=== PATIENT | male | born 1935 | race Caucasian/White ===

== ENCOUNTER 2017-10-23 14:41 | Inpatient (IN) | payer MEDICARE, OTHER ==
[~2017-10-23] VITALS: Ht 182.9 cm; Wt 91.5 kg
[2017-10-23] MEDS ORDERED: ONDANSETRON ODT 4 MG ONE (15:57)
[2017-10-23] MEDS ORDERED: MORPHINE SULFATE 4 MG/ML, 1ML ONE (15:57)
[2017-10-23 16:26] LABS: BASOPHILS # (AUTO) 0.04 x10^3/uL (0-0.1); BASOPHILS % (AUTO) 0 % (0-1); EOSINOPHILS # (AUTO) 0.04 x10^3/uL (0-0.4); EOSINOPHILS % (AUTO) 0 % (1-7); LYMPHOCYTES # (AUTO) 1.21 x10^3/uL (1-3.4); LYMPHOCYTES % (AUTO) 10 % (22-44); MD NO; MEAN CORPUSCULAR HEMOGLOBIN 32.2 pg (27.5-34.5); MEAN CORPUSCULAR HGB CONC 33.5 g/dL (33.2-36.2); MEAN PLATELET VOLUME 8.1 fL (7.4-10.4); MONOCYTES # (AUTO) 0.51 x10^3/uL (0.2-0.8); MONOCYTES % (AUTO) 4 % (2-9); NEUTROPHILS # (AUTO) 10.38 x10^3/uL (1.8-6.8); NEUTROPHILS % (AUTO) 85 % (42-75); PLATELET COUNT 154 x10^3/uL (130-400); RED BLOOD COUNT 3.99 x10^6/uL (4.38-5.82); RED CELL DISTRIBUTION WIDTH 13.3 % (9.4-14.8)
[2017-10-23] MEDS ORDERED: METO25TA2 PO (16:26)
[2017-10-23] MEDS ORDERED: PRAV20TA2 PO (16:26)
[2017-10-23] MEDS ORDERED: ASPI-496 PO (16:26)
[2017-10-23] MEDS ORDERED: ENAL20TA PO (16:26)
[2017-10-23 16:37] LABS: ALBUMIN 3.8 g/dL (3.4-5.0); ANION GAP 9 mmol/L (5-15); CALCIUM 8.3 mg/dL (8.5-10.1); CHLORIDE 107 mmol/L (98-107); CREATININE 1.42 mg/dL (0.7-1.3)
[2017-10-23] MEDS ORDERED: MORPHINE SULFATE 4 MG/ML, 1ML IVPush PRN (17:00)
[2017-10-23] MEDS ORDERED: ONDANSETRON ODT 4 MG PO ONE (17:00)
[2017-10-23 17:26] LABS: INTERNATIONAL NORMALIZED RATIO 1.02 (0.93-1.1); PROTHROMBIN TIME 10.6 Seconds (9.6-11.5)
[2017-10-23] MEDS ORDERED: L.E.T SOLUTION TP ONE (17:29)
[2017-10-23] MEDS ORDERED: DOCUSATE 100 MG CAPSULE PO PRN (17:30)
[2017-10-23] MEDS ORDERED: ENALAPRILAT 1.25 MG/ML, 2ML IVPush PRN (17:30)
[2017-10-23] MEDS ORDERED: ONDANSETRON ODT 4 MG PO PRN (17:30)
[2017-10-23] MEDS ORDERED: ONDANSETRON 2MG/ML, 2ML IVPush PRN (17:30)
[2017-10-23] MEDS ORDERED: METOCLOPRAMIDE 5 MG/ML, 2ML IVPush PRN (17:30)
[2017-10-23] MEDS ORDERED: hydrALAzine 20 MG/ML, 1ML IVPush PRN (17:30)
[2017-10-23] MEDS ORDERED: LABETALOL 5MG/ML, 20ML IVPush PRN (17:30)
[2017-10-23] MEDS: morphine SULFATE 10 MG/ML, 1ML IVPush PRN ×2 (22:45→23:09)
[2017-10-23] MEDS: LACTATED RINGERS 1,000 ML IV SCH (23:12)
[2017-10-24 02:30] VITALS: BP 129/85
[2017-10-24] MEDS: morphine SULFATE 10 MG/ML, 1ML IVPush PRN ×3 (03:20→11:51)
[2017-10-24 03:38] LABS: MICROSCOPIC NOT IND
[2017-10-24 03:57] LABS: CULTURE INDICATED? NO
[2017-10-24 05:13] LABS: BASOPHILS # (AUTO) 0.05 x10^3/uL (0-0.1); BASOPHILS % (AUTO) 0 % (0-1); EOSINOPHILS # (AUTO) 0.05 x10^3/uL (0-0.4); EOSINOPHILS % (AUTO) 0 % (1-7); LYMPHOCYTES # (AUTO) 1.59 x10^3/uL (1-3.4); LYMPHOCYTES % (AUTO) 15 % (22-44); MD NO; MEAN CORPUSCULAR HEMOGLOBIN 32.1 pg (27.5-34.5); MEAN CORPUSCULAR HGB CONC 33.4 g/dL (33.2-36.2); MEAN PLATELET VOLUME 8.4 fL (7.4-10.4); MONOCYTES # (AUTO) 1.24 x10^3/uL (0.2-0.8); MONOCYTES % (AUTO) 11 % (2-9); NEUTROPHILS # (AUTO) 7.92 x10^3/uL (1.8-6.8); NEUTROPHILS % (AUTO) 73 % (42-75); PLATELET COUNT 142 x10^3/uL (130-400); RED BLOOD COUNT 3.78 x10^6/uL (4.38-5.82); RED CELL DISTRIBUTION WIDTH 13.2 % (9.4-14.8)
[2017-10-24 05:30] LABS: CHLORIDE 106 mmol/L (98-107)
[2017-10-24 05:44] LABS: ALANINE AMINOTRANSFERASE 20 U/L (12-78); ALBUMIN 3.6 g/dL (3.4-5.0); ALKALINE PHOSPHATASE 80 U/L (45-117); ANION GAP 10 mmol/L (5-15); BILIRUBIN,TOTAL 0.7 mg/dL (0.2-1.0); CALCIUM 8.1 mg/dL (8.5-10.1); CREATININE 1.34 mg/dL (0.7-1.3)
[2017-10-24 06:55] VITALS: BP 138/90
[2017-10-24] MEDS: ENOXAPARIN 40 MG/0.4 ML SQ SCH (08:18)
[2017-10-24] MEDS: METOPROLOL TARTRATE 25 MG TABLET PO SCH ×3 (11:00→21:25)
[2017-10-24] MEDS: ENALAPRIL 20MG TABLET PO SCH ×2 (11:00→12:48)
[2017-10-24 11:43] VITALS: BP 129/8
[2017-10-24 12:24] LABS: TROPONIN I < 0.015 ng/mL (0.000-0.045)
[2017-10-24 12:39] VITALS: BP 151/105
[2017-10-24] MEDS: LACTATED RINGERS 1,000 ML IV SCH (12:50)
[2017-10-24 14:06] VITALS: BP 128/88
[2017-10-24] MEDS ORDERED: DIGOXIN 0.25 MG/ML, 2ML IVPush ONE (14:30)
[2017-10-24] MEDS ORDERED: DILTIAZEM 5 MG/ML, 5ML IVPush ONE (14:30)
[2017-10-24] MEDS ORDERED: MAGNESIUM SULFATE PMX 2GM/50ML 50 ML IV ONE (14:30)
[2017-10-24] MEDS ORDERED: METOPROLOL TARTRATE 25 MG TABLET PO SCH (17:00)
[2017-10-24 19:05] VITALS: BP 165/98
[2017-10-24] MEDS: PRAVASTATIN 20 MG TABLET PO SCH (21:24)
[2017-10-25 00:46] VITALS: BP 148/94
[2017-10-25] MEDS: METOPROLOL TARTRATE 25 MG TABLET PO SCH ×7 (01:00→21:39)
[2017-10-25] MEDS: LACTATED RINGERS 1,000 ML IV SCH (03:06)
[2017-10-25 07:37] LABS: MEAN CORPUSCULAR HEMOGLOBIN 31.6 pg (27.5-34.5); MEAN CORPUSCULAR HGB CONC 32.8 g/dL (33.2-36.2); MEAN CORPUSCULAR VOLUME 96.4 fL (81-97); MEAN PLATELET VOLUME 8.7 fL (7.4-10.4); PLATELET COUNT 117 x10^3/uL (130-400); RED BLOOD COUNT 3.78 x10^6/uL (4.38-5.82); RED CELL DISTRIBUTION WIDTH 13.2 % (9.4-14.8)
[2017-10-25 07:46] LABS: ALBUMIN 3.1 g/dL (3.4-5.0); ANION GAP 8 mmol/L (5-15); CALCIUM 7.8 mg/dL (8.5-10.1); CHLORIDE 104 mmol/L (98-107)
[2017-10-25 07:49] LABS: ALANINE AMINOTRANSFERASE 17 U/L (12-78); ALKALINE PHOSPHATASE 73 U/L (45-117); BILIRUBIN,TOTAL 0.9 mg/dL (0.2-1.0); CREATININE 1.26 mg/dL (0.7-1.3); TOTAL PROTEIN 6.7 g/dL (6.4-8.2)
[2017-10-25 08:17] LABS: BASOPHILS # (AUTO) 0.09 x10^3/uL (0-0.1); BASOPHILS % (AUTO) 1 % (0-1); EOSINOPHILS # (AUTO) 0.01 x10^3/uL (0-0.4); EOSINOPHILS % (AUTO) 0 % (1-7); LYMPHOCYTES # (AUTO) 1.24 x10^3/uL (1-3.4); LYMPHOCYTES % (AUTO) 8 % (22-44); MD SCAN; MONOCYTES # (AUTO) 1.52 x10^3/uL (0.2-0.8); MONOCYTES % (AUTO) 10 % (2-9); NEUTROPHILS # (AUTO) 13.09 x10^3/uL (1.8-6.8); NEUTROPHILS % (AUTO) 82 % (42-75)
[2017-10-25] MEDS: ENALAPRIL 20MG TABLET PO SCH (09:00)
[2017-10-25] MEDS: TAMSULOSIN 0.4 MG CAP.ER.24H PO SCH (09:00)
[2017-10-25] MEDS: ENOXAPARIN 40 MG/0.4 ML SQ SCH (09:46)
[2017-10-25] MEDS: HALOPERIDOL 5 MG/ML IV PRN ×2 (09:58→18:20)
[2017-10-25] MEDS: PRAVASTATIN 20 MG TABLET PO SCH (21:39)
[2017-10-25 22:01] VITALS: BP 116/79
[2017-10-26] MEDS: METOPROLOL TARTRATE 25 MG TABLET PO SCH ×6 (01:00→13:42)
[2017-10-26] MEDS: HALOPERIDOL 5 MG/ML IV PRN (03:38)
[2017-10-26 06:08] LABS: BASOPHILS # (AUTO) 0.04 x10^3/uL (0-0.1); BASOPHILS % (AUTO) 0 % (0-1); EOSINOPHILS % (AUTO) 0 % (1-7); LYMPHOCYTES # (AUTO) 1.18 x10^3/uL (1-3.4); LYMPHOCYTES % (AUTO) 9 % (22-44); MD NO; MEAN CORPUSCULAR HEMOGLOBIN 32.6 pg (27.5-34.5); MEAN CORPUSCULAR HGB CONC 33.8 g/dL (33.2-36.2); MEAN CORPUSCULAR VOLUME 96.4 fL (81-97); MEAN PLATELET VOLUME 8.7 fL (7.4-10.4); MONOCYTES # (AUTO) 1.24 x10^3/uL (0.2-0.8); MONOCYTES % (AUTO) 10 % (2-9); NEUTROPHILS # (AUTO) 10.64 x10^3/uL (1.8-6.8); NEUTROPHILS % (AUTO) 81 % (42-75); PLATELET COUNT 118 x10^3/uL (130-400); RED BLOOD COUNT 3.66 x10^6/uL (4.38-5.82); RED CELL DISTRIBUTION WIDTH 13.3 % (9.4-14.8)
[2017-10-26 06:15] LABS: ANION GAP 9 mmol/L (5-15); CALCIUM 7.9 mg/dL (8.5-10.1); CHLORIDE 104 mmol/L (98-107)
[2017-10-26 07:16] VITALS: BP 136/91
[2017-10-26] MEDS: ENOXAPARIN 40 MG/0.4 ML SQ SCH (09:51)
[2017-10-26] MEDS: TAMSULOSIN 0.4 MG CAP.ER.24H PO SCH (09:52)
[2017-10-26] MEDS: ENALAPRIL 20MG TABLET PO SCH (09:53)
[2017-10-26 13:20] VITALS: BP 123/78
[2017-10-26] MEDS: DILTIAZEM 60 MG TABLET PO SCH ×3 (14:30→20:40)
[2017-10-26] MEDS: ACETAMINOPHEN 325 MG TABLET PO PRN (18:05)
[2017-10-26 19:28] VITALS: BP 99/58
[2017-10-26] MEDS: PRAVASTATIN 20 MG TABLET PO SCH (20:08)
[2017-10-26 20:11] VITALS: BP 83/53
[2017-10-26 20:18] VITALS: BP 97/59
[2017-10-26] MEDS: SODIUM CHLORIDE 0.9% 1,000 ML IV SCH (20:44)
[2017-10-27 01:50] VITALS: BP 119/75
[2017-10-27 09:15] VITALS: BP 124/65
[2017-10-27] MEDS: DILTIAZEM 60 MG TABLET PO SCH ×3 (09:21→18:12)
[2017-10-27] MEDS: TAMSULOSIN 0.4 MG CAP.ER.24H PO SCH ×2 (09:21→10:26)
[2017-10-27] MEDS: ENOXAPARIN 40 MG/0.4 ML SQ SCH ×2 (09:22→10:27)
[2017-10-27] MEDS: ENALAPRIL 20MG TABLET PO SCH ×2 (09:22→10:27)
[2017-10-27] MEDS: SODIUM CHLORIDE 0.9% 1,000 ML IV SCH ×2 (09:31→23:48)
[2017-10-27] MEDS: ACETAMINOPHEN 325 MG TABLET PO PRN (11:01)
[2017-10-27] MEDS ORDERED: LIDODERM 5% PATCH TD ONE (11:30)
[2017-10-27 14:00] VITALS: BP 157/81
[2017-10-27] MEDS: PRAVASTATIN 20 MG TABLET PO SCH (20:30)
[2017-10-27 20:46] VITALS: BP 128/85
[2017-10-27] MEDS ORDERED: DILTIAZEM 60 MG TABLET PO ONE (23:30)
[2017-10-28 02:35] VITALS: BP 153/93
[2017-10-28] MEDS: HALOPERIDOL 5 MG/ML IV PRN (04:00)
[2017-10-28 05:13] LABS: CHLORIDE 101 mmol/L (98-107)
[2017-10-28 05:18] LABS: BASOPHILS # (AUTO) 0.02 x10^3/uL (0-0.1); BASOPHILS % (AUTO) 0 % (0-1); EOSINOPHILS # (AUTO) 0.02 x10^3/uL (0-0.4); EOSINOPHILS % (AUTO) 0 % (1-7); LYMPHOCYTES # (AUTO) 0.78 x10^3/uL (1-3.4); LYMPHOCYTES % (AUTO) 9 % (22-44); MD NO; MEAN CORPUSCULAR HEMOGLOBIN 31.9 pg (27.5-34.5); MEAN CORPUSCULAR HGB CONC 33.7 g/dL (33.2-36.2); MEAN CORPUSCULAR VOLUME 94.6 fL (81-97); MEAN PLATELET VOLUME 7.8 fL (7.4-10.4); MONOCYTES % (AUTO) 9 % (2-9); NEUTROPHILS # (AUTO) 6.95 x10^3/uL (1.8-6.8); NEUTROPHILS % (AUTO) 81 % (42-75); PLATELET COUNT 137 x10^3/uL (130-400); RED BLOOD COUNT 3.39 x10^6/uL (4.38-5.82); RED CELL DISTRIBUTION WIDTH 13.2 % (9.4-14.8)
[2017-10-28 05:22] LABS: ALANINE AMINOTRANSFERASE 35 U/L (12-78); ALBUMIN 2.4 g/dL (3.4-5.0); ALKALINE PHOSPHATASE 89 U/L (45-117); ANION GAP 12 mmol/L (5-15); BILIRUBIN,TOTAL 0.8 mg/dL (0.2-1.0); CALCIUM 8.1 mg/dL (8.5-10.1); CREATININE 1.13 mg/dL (0.7-1.3); TOTAL PROTEIN 6.4 g/dL (6.4-8.2)
[2017-10-28] MEDS ORDERED: ASPIRIN 81 MG TABLET EC PO SCH (06:00)
[2017-10-28 08:35] VITALS: BP 132/70
[2017-10-28] MEDS ORDERED: METOPROLOL SUCCINATE 25 MG TAB.ER.24H PO SCH (09:00)
[2017-10-28] MEDS ORDERED: SENNA/DOCUSATE TABLET ONE (09:42)
[2017-10-28] MEDS: TAMSULOSIN 0.4 MG CAP.ER.24H PO SCH (09:59)
[2017-10-28] MEDS: ENALAPRIL 20MG TABLET PO SCH (10:00)
[2017-10-28] MEDS ORDERED: SENNA/DOCUSATE TABLET PO PRN (10:00)
[2017-10-28] MEDS: ENOXAPARIN 40 MG/0.4 ML SQ SCH (10:00)
[2017-10-28] MEDS ORDERED: MAGNESIUM HYDROXIDE 8%, 30ML UDC PO PRN (10:00)
[2017-10-28] MEDS ORDERED: HALOPERIDOL 5 MG/ML IM PRN (11:00)
[2017-10-28] MEDS ORDERED: POLYETHYLENE GLYCOL 17 GM PACKET PO ONE (11:00)
[2017-10-28] MEDS: DABIGATRAN 150 MG CAPSULE PO SCH ×2 (12:42→20:01)
[2017-10-28] MEDS: SODIUM CHLORIDE 0.9% 1,000 ML IV SCH (13:00)
[2017-10-28 15:04] VITALS: BP 108/74
[2017-10-28] MEDS: LIDODERM 5% PATCH TD SCH (15:38)
[2017-10-28] MEDS: VALPROIC ACID 250 MG CAPSULE PO SCH ×2 (15:38→20:01)
[2017-10-28 18:25] VITALS: BP 153/86
[2017-10-28] MEDS: PRAVASTATIN 20 MG TABLET PO SCH (20:01)
[2017-10-28] MEDS: DOCUSATE 100 MG CAPSULE PO SCH (20:01)
[2017-10-28] MEDS ORDERED: SODIUM CHLORIDE 0.9% 1,000 ML IV SCH (21:00)
[2017-10-29] MEDS ORDERED: DILTIAZEM MC SCH (07:00)
[2017-10-29] MEDS ORDERED: DILTIAZEM 30 MG TABLET PO SCH ×2 (07:00→11:00)
[2017-10-29] MEDS ORDERED: METOPROLOL SUCCINATE 25 MG TAB.ER.24H PO SCH ×2 (09:00)
[2017-10-29] MEDS ORDERED: DILTIAZEM 30 MG TABLET PO PRN ×2 (09:00→11:30)
[2017-10-29 09:07] VITALS: BP 111/77
[2017-10-29] MEDS: TAMSULOSIN 0.4 MG CAP.ER.24H PO SCH (10:27)
[2017-10-29] MEDS: VALPROIC ACID 250 MG CAPSULE PO SCH ×2 (10:27→14:51)
[2017-10-29] MEDS: DOCUSATE 100 MG CAPSULE PO SCH (10:27)
[2017-10-29] MEDS: ENALAPRIL 20MG TABLET PO SCH (10:27)
[2017-10-29] MEDS: DABIGATRAN 150 MG CAPSULE PO SCH (10:27)
[2017-10-29] MEDS: SODIUM CHLORIDE 0.9% 1,000 ML IV SCH (10:29)
[2017-10-29] MEDS ORDERED: VALP250C PO (12:15)
[2017-10-29] MEDS ORDERED: DABI150C PO (12:15)
[2017-10-29] MEDS ORDERED: DOCU-131 PO (12:15)
[2017-10-29] MEDS ORDERED: Lidoderm 5% Patch TD (12:15)
[2017-10-29] MEDS ORDERED: TRAM50TA2 PO (12:15)
[2017-10-29] MEDS ORDERED: TAMS-11 PO (12:15)
[2017-10-29] MEDS ORDERED: ACET325T14 PO (12:15)
[2017-10-29] MEDS ORDERED: DILT30TA27 PO (12:15)
[2017-10-29 12:38] VITALS: BP 127/82
[2017-10-29] MEDS: LIDODERM 5% PATCH TD SCH (14:49)
== END 2017-10-29 15:13 | DRG 533 ==
LOC: ED 16:32 → EDIP 17:26 → 4NOR 18:26 → 5SO 10-24 11:38 → 4EST 10-25 12:24
PROVIDERS: ADMIT Internal Medicine Pulmonary Disease; ATTEND Internal Medicine Pulmonary Disease
DX: S72.332A Displaced oblique fracture of shaft of left femur, initial encounter for closed fracture (principal); N17.0 Acute kidney failure with tubular necrosis; I48.91 Unspecified atrial fibrillation; D68.69 Other thrombophilia; E83.51 Hypocalcemia; I48.92 Unspecified atrial flutter; M97.02XA Periprosthetic fracture around internal prosthetic left hip joint, initial encounter; N17.9 Acute kidney failure, unspecified; Z66 Do not resuscitate; D72.829 Elevated white blood cell count, unspecified; E78.5 Hyperlipidemia, unspecified; I10 Essential (primary) hypertension; K59.00 Constipation, unspecified; Z96.643 Presence of artificial hip joint, bilateral; Z96.653 Presence of artificial knee joint, bilateral; R73.9 Hyperglycemia, unspecified; R41.0 Disorientation, unspecified; Z53.20 Procedure and treatment not carried out because of patient's decision for unspecified reasons; W01.0XXA Fall on same level from slipping, tripping and stumbling without subsequent striking against object, initial encounter; Y93.01 Activity, walking, marching and hiking; Y92.89 Other specified places as the place of occurrence of the external cause; Y99.8 Other external cause status; Z79.82 Long term (current) use of aspirin; Z87.891 Personal history of nicotine dependence; Z91.81 History of falling; Z95.2 Presence of prosthetic heart valve
CPT/HCPCS: 36415; 71045; 80048; 80053; 81003; 82040; 83735; 84100; 84484; 85025; 85610; 85730; 87040; 93005; 96374; C8929; J1650; Q0162; J1160; J1630; J2270; J3475; J7030; J7120

== ENCOUNTER 2018-01-05 11:57 | Emergency (ER) | payer MEDICARE, OTHER ==
[~2018-01-05] VITALS: Ht 182.9 cm; Wt 86.0 kg
[~2018-01-05 11:57] MED LIST: ACET325T14 PO; ASPI-496 PO; DABI150C PO; DILT30TA27 PO; DOCU-131 PO; ENAL20TA PO; Lidoderm 5% Patch TD; METO25TA2 PO; PRAV20TA2 PO; TAMS-11 PO; TRAM50TA2 PO; VALP250C PO
[2018-01-05 14:06] LABS: ALBUMIN 4.1 g/dL (3.4-5.0); ANION GAP 7 mmol/L (5-15); CALCIUM 8.9 mg/dL (8.5-10.1); CHLORIDE 101 mmol/L (98-107); CREATININE 1.37 mg/dL (0.7-1.3)
[2018-01-05 14:11] LABS: ALANINE AMINOTRANSFERASE 21 U/L (12-78); ALKALINE PHOSPHATASE 109 U/L (45-117); BILIRUBIN,TOTAL 0.4 mg/dL (0.2-1.0); TOTAL PROTEIN 8.2 g/dL (6.4-8.2)
[2018-01-05 14:18] LABS: MEAN CORPUSCULAR HEMOGLOBIN 31.3 pg (27.5-34.5); MEAN CORPUSCULAR HGB CONC 33.1 g/dL (33.2-36.2); MEAN CORPUSCULAR VOLUME 94.5 fL (81-97); MEAN PLATELET VOLUME 7.8 fL (7.4-10.4); PLATELET COUNT 173 x10^3/uL (130-400); RED BLOOD COUNT 4.17 x10^6/uL (4.38-5.82); RED CELL DISTRIBUTION WIDTH 15.2 % (9.4-14.8)
[2018-01-05 14:21] LABS: MD YES
[2018-01-05 14:27] LABS: MICROSCOPIC INDICATED
[2018-01-05 14:29] LABS: BAND#(MANUAL) 0.05 x10^3/uL; BANDS%(MANUAL) 1 % (0-7); BASOS% (MANUAL) 2 % (0-1); LYMPH#(MANUAL) 0.65 x10^3/uL (1-3.4); LYMPHS% (MANUAL) 13 % (22-44); METAMYELOCYTES# (MANUAL) 0.15 x10^3/uL (0-0); METAMYELOCYTES% (MANUAL) 3 % (0-1); MONOS% (MANUAL) 16 % (2-9); MYELOCYTES# (MANUAL) 0.05 x10^3/uL (0-0); MYELOCYTES% (MANUAL) 1 % (0-0); REACTIVE LYMPHS % (MANUAL) 2 % (0-0); SEGS% (MANUAL) 62 % (42-75)
[2018-01-05 14:31] LABS: <PLATELET ESTIMATE> ADEQUATE; <PLT MORPHOLOGY> NORMAL PLT MORPH; ANISOCYTOSIS 1+; HYPOCHROMIA 1+; POLYCHROMASIA 1+
[2018-01-05] MEDS ORDERED: DABI75CA3 PO (14:32)
[2018-01-05] MEDS ORDERED: CALC-451 PO (14:33)
[2018-01-05 14:34] VITALS: BP 125/76
[2018-01-05] MEDS ORDERED: CALCIUM (14:34)
[2018-01-05 14:35] LABS: CULTURE INDICATED? NO
== END 2018-01-05 15:49 | disposition home or self-care (01) ==
LOC: ED 15:40
DX: E86.0 Dehydration (principal); I48.91 Unspecified atrial fibrillation; I50.9 Heart failure, unspecified; N28.9 Disorder of kidney and ureter, unspecified; Z79.01 Long term (current) use of anticoagulants; Z79.82 Long term (current) use of aspirin
CPT/HCPCS: 36415; 71045; 80053; 81001; 85025; 93005; 99285

== ENCOUNTER 2018-10-30 12:41 | Day surgery (SDC) | payer MEDICARE, OTHER ==
[~2018-10-30] VITALS: Ht 182.9 cm; Wt 82.1 kg
[~2018-10-30 12:41] MED LIST changes: +APIX5TAB PO; +ATOR40TA78 PO; +CALC-451 PO; +CALCIUM; +DABI75CA3 PO; +METO50TA82 PO; +MULT1TAB9 PO
[2018-10-30 13:12] VITALS: BP 110/75
[2018-10-30] MEDS ORDERED: LACTATED RINGERS 1,000 ML IV SCH (13:22)
[2018-10-30] MEDS ORDERED: BUPIVACAINE/EPI 0.5% 1:200K ONE (13:28)
[2018-10-30] MEDS ORDERED: MIDAZOLAM 1 MG/ML, 5ML ONE (14:31)
[2018-10-30] MEDS ORDERED: FENTANYL PF 100 MCG/2ML ONE (14:31)
== END 2018-10-30 16:45 | disposition home or self-care (01) ==
LOC: OUT 12:41 → EDSTATUS 14:30 → OUT 16:45
PROVIDERS: ATTEND Surgery
DX: C19 Malignant neoplasm of rectosigmoid junction (principal); I10 Essential (primary) hypertension; Z79.01 Long term (current) use of anticoagulants; Z79.899 Other long term (current) drug therapy; Z98.890 Other specified postprocedural states; Z95.2 Presence of prosthetic heart valve; Z87.891 Personal history of nicotine dependence
CPT/HCPCS: 45331; 88305; 93005; J2250; J3010; 99152; 99153

== ENCOUNTER → 2018-11-09 | Outpatient (CLI) | payer MEDICARE, OTHER ==
[~2018-11-09] MED LIST changes: +OMNIPAQUE 350 MG/ML, 100ML BOTTLE ONE
== END | disposition home or self-care (01) ==
LOC: CFH 08:07
PROVIDERS: ATTEND Surgery
DX: K57.30 Diverticulosis of large intestine without perforation or abscess without bleeding (principal); D73.89 Other diseases of spleen; K62.89 Other specified diseases of anus and rectum
CPT/HCPCS: 74177; 82565; Q9967

== ENCOUNTER 2018-11-13 14:19 | Day surgery (SDC) | payer MEDICARE, OTHER ==
[~2018-11-13] VITALS: Ht 172.7 cm; Wt 80.7 kg
[~2018-11-13 14:19] MED LIST changes: -OMNIPAQUE 350 MG/ML, 100ML BOTTLE ONE
[2018-11-13 15:00] VITALS: BP 133/90
[2018-11-13] MEDS ORDERED: BUPIVACAINE/EPI 0.5% 1:200K ONE (17:39)
[2018-11-13] MEDS ORDERED: PROPOFOL 10 MG/ML, 20ML ONE (17:56)
[2018-11-13] MEDS ORDERED: SUCCINYLCHOLINE 20 MG/ML, 10ML ONE (17:56)
[2018-11-13] MEDS ORDERED: ALBUTEROL SULFATE 2.5 MG/3 ML NPPB PRN (18:30)
[2018-11-13] MEDS ORDERED: METOCLOPRAMIDE 5 MG/ML, 2ML IV PRN (18:30)
[2018-11-13] MEDS ORDERED: OXYcodone 5 MG/5 ML ORAL.SOL UDC PO PRN (18:30)
[2018-11-13] MEDS ORDERED: FENTANYL PF 100 MCG/2ML IV PRN (18:30)
[2018-11-13] MEDS ORDERED: LABETALOL 5MG/ML, 20ML IV PRN (18:30)
[2018-11-13] MEDS ORDERED: MEPERIDINE/PF 25MG/0.5ML IVPush PRN (18:30)
[2018-11-13] MEDS ORDERED: ONDANSETRON 2MG/ML, 2ML IVPush PRN (18:30)
[2018-11-13] MEDS ORDERED: KETOROLAC 30 MG/1 ML IV PRN (18:30)
[2018-11-13] MEDS ORDERED: hydrALAzine 20 MG/ML, 1ML IV PRN (18:30)
[2018-11-13] MEDS ORDERED: PROMETHAZINE 25 MG/ML, 1ML IV PRN (18:30)
[2018-11-13] MEDS ORDERED: HYDROmorphone 1 MG/ML, 1ML INJ IV PRN (18:30)
== END 2018-11-13 20:45 | disposition home or self-care (01) ==
LOC: OR 14:19 → 4NOR 19:20 → OR 20:45
PROVIDERS: ATTEND Surgery
DX: K62.6 Ulcer of anus and rectum (principal); K52.9 Noninfective gastroenteritis and colitis, unspecified; K62.89 Other specified diseases of anus and rectum; I10 Essential (primary) hypertension; F41.9 Anxiety disorder, unspecified; Z79.01 Long term (current) use of anticoagulants; Z87.891 Personal history of nicotine dependence; Z87.39 Personal history of other diseases of the musculoskeletal system and connective tissue
CPT/HCPCS: 45171; 88305; 88341; 88342; J0330; J2704; G0378

== ENCOUNTER 2018-11-18 11:02 | Outpatient (CLI) | payer MEDICARE, OTHER | END 2018-11-18 23:59 | disposition home or self-care (01) | LOC: ROC 11:02 | PROVIDERS: ATTEND Radiology Radiation Oncology | DX: C21.8 Malignant neoplasm of overlapping sites of rectum, anus and anal canal (principal) | CPT/HCPCS: G0463 ==

== ENCOUNTER → 2018-11-23 | Outpatient (CLI) | payer MEDICARE, OTHER ==
[2018-11-23 12:27] LABS: CHLORIDE 105 mmol/L (98-107)
[2018-11-23 12:35] LABS: ALANINE AMINOTRANSFERASE 20 U/L (12-78); ALBUMIN 3.5 g/dL (3.4-5.0); ALKALINE PHOSPHATASE 119 U/L (45-117); ANION GAP 5 mmol/L (5-15); BILIRUBIN,TOTAL 0.6 mg/dL (0.2-1.0); CALCIUM 8.8 mg/dL (8.5-10.1); CHOL/HDL RATIO 2.6; CHOLESTEROL, TOTAL 126 mg/dL (140-239); CREATININE 1.72 mg/dL (0.7-1.3); HDL CHOL % 38 % (26-37); HDL CHOLESTEROL (DIRECT) 48 mg/dL (40-60); LDL CHOLESTEROL,CALCULATED 54 mg/dL (54-169); LDL/HDL RATIO 1.1 (0.5-3.0); TRIGLYCERIDES 120 mg/dL (50-200); VLDL CHOLESTEROL 24 mg/dL (0-25)
== END | disposition home or self-care (01) ==
LOC: LAB 09:04
PROVIDERS: ATTEND Internal Medicine Cardiovascular Disease
DX: E78.2 Mixed hyperlipidemia (principal); I10 Essential (primary) hypertension
CPT/HCPCS: 36415; 80053; 80061

== ENCOUNTER → 2018-11-27 | Outpatient (CLI) | payer MEDICARE, OTHER | END | disposition home or self-care (01) | LOC: PETCFH 07:18 | PROVIDERS: ATTEND Surgery | DX: D37.5 Neoplasm of uncertain behavior of rectum (principal); I70.0 Atherosclerosis of aorta | CPT/HCPCS: 78815; A9552 ==

== ENCOUNTER → 2019-01-08 | Outpatient (CLI) | payer MEDICARE, OTHER ==
[2019-01-08 12:56] LABS: ALANINE AMINOTRANSFERASE 18 U/L (12-78); ALBUMIN 3.4 g/dL (3.4-5.0); ANION GAP 7 mmol/L (5-15); CALCIUM 8.4 mg/dL (8.5-10.1); CHLORIDE 108 mmol/L (98-107); CREATININE 1.61 mg/dL (0.7-1.3)
[2019-01-08 12:58] LABS: ALKALINE PHOSPHATASE 97 U/L (45-117); BILIRUBIN,TOTAL 0.6 mg/dL (0.2-1.0); TOTAL PROTEIN 7.1 g/dL (6.4-8.2)
== END | disposition home or self-care (01) ==
LOC: LAB 10:23
PROVIDERS: ATTEND Specialist
DX: C20 Malignant neoplasm of rectum (principal)
CPT/HCPCS: 36415; 80053

== ENCOUNTER 2019-01-15 11:25 | Outpatient (CLI) | payer MEDICARE, OTHER ==
[2019-01-16] MEDS ORDERED: IMMODIUM (17:34)
[2019-01-16] MEDS ORDERED: CAPE500T24 PO (17:34)
[2019-01-16] MEDS ORDERED: ONDA8TAB9 PO (17:34)
[2019-01-16] MEDS ORDERED: MULT-717 PO (17:36)
[2019-01-16] MEDS ORDERED: APIX5TAB PO (17:36)
[2019-01-16] MEDS ORDERED: DONE10TA14 PO (17:36)
[2019-01-16] MEDS ORDERED: CALC-666 PO (17:36)
== END 2019-01-15 23:59 | disposition home or self-care (01) ==
LOC: LAB 11:25
PROVIDERS: ATTEND Specialist
DX: Z02.9 Encounter for administrative examinations, unspecified (principal)